=== PATIENT | female | born 1975 | race Caucasian/White ===

== ENCOUNTER 2018-02-27 07:31 | Emergency (ER) | payer BC ==
[2018-02-27 07:47] VITALS: BP 136/75
--- NOTE | 2018-02-27 08:11 | UC ---
General HPI - HPI Summary HPI Summary: PATIENT QUIT SMOKING SEVERAL MONTHS AGO USING CHANTIX. TOLERATED THE MEDICATION VERY WELL AND IT WAS EFFECTIVE. OVER THE PAST FEW WEEKS SHE HAS HAD SOME INCREASED LIFE STRESS AND STARTED SMOKING AGAIN. SHE IS HERE REQUESTING TO RESTART CHANTIX. PATIENT REPORTS SHE HAS HAD RECENT LAB WORK AND THAT HER KIDNEY FUNCTION IS AND HAS ALWAYS BEEN GOOD. SHE IS HEALTHY WITH NO CHRONIC MEDICAL PROBLEMS OTHER THAN RAYNAUDS. SHE HAS A PCP AN PATRIA RAYA BUT WORKS [place] SO DECIDED TO COME HERE TODAY. STATES SHE WILL FOLLOW-UP WITH HIM. - History of Current Complaint Chief Complaint: UCMedRefill Stated Complaint: MED REFILL Time Seen by Provider: 02/27/18 07:37 Hx Obtained From: Patient Hx Last Menstrual Period: now Pain Intensity: 0 - Allergy/Home Medications Allergies/Adverse Reactions: Allergies Allergy/AdvReac Type Severity Reaction Status Date / Time No Known Allergies Allergy Verified 02/27/18 08:00 Home Medications: Home Medications ALPRAZolam [Xanax] 1 mg PO DAILY 02/27/18 [History Confirmed 02/27/18] PMH/Surg Hx/FS Hx/Imm Hx - Additional Past Medical History Additional PMH: RAYNAUDS - Surgical History Surgical History: Yes Surgery Procedure, Year, and Place: 2006, ERIC BREAST [place]ATION[place] [facility] [place] , [place] BREAST [place]UG[place]ATION[place] [facility] [place] - Family History Known Family History: Negative: Hypertension - Social History Alcohol Use: None Substance Use Type: None Smoking Status (MU): Heavy Every Day Tobacco Smoker Type: Cigarettes Amount Used/How Often: 2 PACKS A DAY Have You Smoked in the Last Year: No When Did the Patient Quit Smoking/Using Tobacco: 06/03/2013 Review of Systems Constitutional: Negative Skin: Negative Respiratory: Negative Cardiovascular: Negative Gastrointestinal: Negative All Other Systems Reviewed And Are Negative: Yes Physical Exam Triage Information Reviewed: Yes Appearance: Well-Appearing, No Pain Distress, Well-Nourished Vital Signs: Initial Vital Signs Temp 98.2 F 02/27/18 07:43 Pulse 97 02/27/18 07:43 Resp 18 02/27/18 07:43 BP 136/75 02/27/18 07:43 Pulse Ox 100 02/27/18 07:43 Vital Signs Reviewed: Yes Eyes: Positive: Conjunctiva Clear ENT: Positive: Hearing grossly normal Neck: Positive: Supple Respiratory Exam: Normal Cardiovascular Exam: Normal Abdomen Description: Positive: Soft Musculoskeletal: Positive: No Edema Neurological: Positive: Alert Psychological: Positive: Age Appropriate Behavior Skin: Negative: rashes Course/Dx - Differential Dx - Multi-Symptom Provider Diagnoses: TOBACCO DEPENDENCE Discharge - Sign-Out/Discharge Documenting (check all that apply): Patient Departure - Discharge Plan Condition: Stable Disposition: HOME Prescriptions: Varenicline Tartrate [Chantix Starting M... 0.5 mg X 11 & 1 mg X 42] 1 radha PO SEE INSTRUCTIONS #1 radha Patient Education Materials: How to Stop Smoking (ED) Referrals: Aric Garcia MD [Primary Care Provider] - 2 Weeks Additional Instructions: RX FOR CHANTIX STARTER PACK GIVEN TODAY. PLEASE FOLLOW-UP WITH YOUR PCP IN THE NEXT FEW WEEKS FOR RE-EVALUATION AND FOR RX FOR CONTINUING THE MEDICATION. - Billing Disposition and Condition Condition: STABLE Disposition: Home
== END 2018-02-27 08:10 | disposition home or self-care (01) ==
LOC: UCEAST 07:31
DX: F17.210 Nicotine dependence, cigarettes, uncomplicated (principal); Z76.0 Encounter for issue of repeat prescription
CPT/HCPCS: 99212; G0463